=== PATIENT | male | born 1935 | race Caucasian/White ===

== ENCOUNTER 2018-02-07 07:50 | Outpatient (CLI) | payer MEDICARE, BC ==
[~2018-02-07] VITALS: Ht 165.1 cm; Wt 90.9 kg
--- NOTE | ~2018-02-07 | OP ---
PATIENT NAME: ZOHRA FITZGERALD MEDICAL RECORD: [id number] :31 LOCATION:D.CAT ADMISSION DATE: SURGEON: JANINE BRIDGES MD DATE OF OPERATION: 02/07/2018 PROCEDURE: 1. Aortofemoral runoff. 2. Abdominal aortography. INDICATION: Claudication and peripheral vascular disease. PROCEDURE IN DETAIL: After informed consent was obtained and after a detailed description of risks, benefits as well as alternative therapies, the patient elected to proceed with angiogram and aortofemoral runoff. The right femoral area had a preexisting sheath from coronary intervention. All catheters exchanged through this sheath. FINDINGS: Abdominal aortography was performed. The catheter was pulled down for aortofemoral runoff. Abdominal aortography reveals no significant abdominal aortic disease, no dissection or aneurysmal formation. RIGHT LEG: A. Iliac: The common internal and external iliacs have moderate irregularities, but no flow-limiting stenosis. B. Femoral system: The common superficial and deep femoral have moderate irregularities, but no flow-limiting stenosis. C. Popliteal and infrapopliteal vessels: Popliteal is widely patent. 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 There is 2-vessel runoff through the peroneal and posterior tibial, although these are diffusely diseased. LEFT LEG: A. Iliac: The common internal and external iliacs have moderate irregularities, but no flow-limiting stenosis. B. Femoral system: The common superficial and deep femoral have moderate irregularities, but no flow-limiting stenosis. C. Popliteal and infrapopliteal vessels: Popliteal is widely patent. 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 There is 2-vessel runoff through the peroneal and posterior tibial, although these are diffusely diseased. OVERALL IMPRESSION: Infrapopliteal disease bilaterally. Otherwise, no significant peripheral vascular disease is present. TRANSINT:[id number] Voice Confirmation ID: [id number] DOCUMENT ID: [id number] JANINE BRIDGES MD at 0956 CC: [id number] DICTATION DATE: 02/07/18 1034 CLOTH MEASURER: 02/07/18 1404 DEP CLI 02/07/18 [place] [address]
--- NOTE | ~2018-02-07 | HEMODYNAMI ---
PATIENT:ZOHRA FITZGERALD MEDICAL RECORD: [id number] : 31 LOCATION:DSharonCAT ADMISSION DATE: 02/07/18 Generatedon:02/07/201810:32 Patient name: ZOHRA FITZGERALD Patient #: [id number] : 1935 Date of study: 02/07/2018 Page: Of Hemodynamic Procedure Report Patient Data Patient Demographics Procedure consent was obtained First Name: ZOHRA Gender: Male Last Name: AMILCAR : 1935 [facility] Initial: L Age: 82 year(s) Patient #: [id number] Race: SSN: [id number] Additional ID: [id number] Contact details Address: [address] [address] State: [place] City: [place] Zip code: [address] Admission Admission Data Admission Date: 02/07/2018 Admission Time: 7:50 Arrival Date: 02/07/2018 Arrival Time: 10:00 Admit Source: Other Insurance Payor: Medicare Height (in.): 66 BSA: 2.03 (m2) Height (cm.): 167.64 BMI: 33.57 (kg/m2) Weight (lbs.): 208 Weight (kg.): 94.35 Lab Results Lab Result Date: 02/07/2018 Lab Result Time: 0:00 Biochemistry Name Units Result Min Max BUN mg/dl 12 --(-*--)-- 7 18 Creatinine mg/dl 0.7 --(*---)-- 0.6 1.3 CBC Name Units Result Min Max Hemoglobin g/dl 16 --(--*-)-- 13.5 17.5 Procedure Procedure Types Cath Procedure Diagnostic Procedure C [facility] w/Coronaries Peripheral Cath Diagnostic Procedure Cath Peripheral Urpff-Nunvfmq-Jrr-Off Procedure Description Procedure Date Procedure Date: 02/07/2018 Procedure Start Time: 10:10 Procedure End Time: 10:29 Procedure Staff Name Function Reji Greenfield MD Performing Physician Usah Reynolds RT Monitor Peggy Lawler RN Nurse Alia Stewart RT Scrub Procedure Data Cath Procedure Fluoroscopy Diagnostic fluoroscopy Total fluoroscopy Time: 5.4 time: 5.4 min min Diagnostic fluoroscopy Total fluoroscopy dose: dose: 1027 mGy 1027 mGy Contrast Material Contrast Material Type Amount (ml) Isovue 300 93 Entry Location Entry Primary Successful Side Size Upsize Upsize Entry Closure Succes sful Closure Location (Fr) 1 (Fr) 2 (Fr) Remarks Device Remarks Femoral Right 5 Fr 6 Fr Exoseal artery Short Estimated blood loss: 5 ml Diagnostic catheters Device Type Used For End Catheter Placement MULTIPACK Pigtail 5 Fr LV Angiography catheter MULTIPACK JL 4.0 5Fr Left Coronary catheter Angiography MULTIPACK 3DRC 5Fr Right Coronary catheter Angiography Procedure Complications No complications Procedure Medications Medication Administration Route Dosage Oxygen NC 2 l/min Lidocaine 2% added to field 20 Heparin Flush Bag added to field 2 bags (1000units/500ml NS) 0.9% NaCl I.V. 100 ml/hr Versed I.V. 1 mg Fentanyl I.V. 50 mcg Versed I.V. 1 mg Fentanyl I.V. 50 mcg Heparin Bolus I.V. 4000 units Versed I.V. 1 mg Integrilin (Bolus I.V. 8.5 ml 2mg/ml) Plavix P.O. 600 mg Hemodynamics Rest BSA: 2.03 (m2) HGB: 16 (g/dl) O2 Consumption: Estimated: 220.94 (ml/min) O2 Cons umption indexed: Estimated:108.84 (ml/min/m) Heart Rate: 57 (bpm) Snapshots Pre Cath Intra NCS Post Cath Vital Signs Time Heart Resp SPO2 etCO2 NIBP (mmHg) Rhythm Pain Sedation Rate (ipm) (%) (mmHg) Status Level (bpm) 9:46:12 58 16 95 0 129/75(107) NSR 0 (11) 10(A) , No pain 9:50:24 60 13 93 37.4 123/76(105) NSR 0 (11) 10(A) , No pain 9:54:37 67 15 94 35.8 127/77(110) NSR 0 (11) 10(A) , No pain 9:58:51 58 13 94 1.4 107/67(86) NSR 0 (11) 10(A) , No pain 10:03:07 61 13 92 41.1 90/53(69) NSR 0 (11) 10(A) , No pain 10:07:17 56 15 94 30.7 100/52(72) NSR 0 (11) 9(A) , No pain 10:11:30 63 13 94 20.9 106/60(81) NSR 0 (11) 9(A) , No pain 10:15:41 62 16 95 19.4 109/60(91) NSR 0 (11) 9(A) , No pain 10:19:49 60 15 96 24.6 105/63(84) NSR 0 (11) 9(A) , No pain 10:24:01 62 12 93 27.6 98/56(81) NSR 0 (11) 9(A) , No pain 10:28:11 61 15 95 40.3 95/55(70) NSR 0 (11) 10(A) , No pain Medications Time Medication Route Dose Verified Delivered Reason Notes Effectiveness by by 9:53:46 Oxygen NC 2 Reji Buffie used for l/min Gin Lawler RN procedure 9:53:52 Lidocaine 2% added 20ml Reji Reji for local to vial Gin Greenfield MD anesthetic field 9:53:58 Heparin Flush added 2 Reji Reji used for Bag to bags Gin Greenfield MD procedure (1000units/500ml field NS) 9:54:07 0.9% NaCl I.V. 100 Reji Buffie Per physician ml/hr Gin Lawler RN 10:00:18 Versed I.V. 1 mg Reji Buffie for sedation Gin Lawler RN 10:00:25 Fentanyl I.V. 50 Reji Buffie for sedation mcg Gin Lawler RN 10:05:10 Versed I.V. 1 mg Reji Buffie for sedation Gin Lawler RN 10:05:13 Fentanyl I.V. 50 Reji Buffie for sedation mcg Gin Lawler RN 10:18:37 Heparin Bolus I.V. 4000 Reji Buffie for verifi ed units Gin Lawler RN anticoagulation with dr greenfield 10:21:59 Versed I.V. 1 mg Reji Buffie for sedation Gin Lawler RN 10:22:21 Integrilin I.V. 8.5 Reji Buffie for wasted (Bolus 2mg/ml) ml Gin Lawler RN antiplatelet 1.5 ml therapy of vial 10:29:16 Plavix P.O. 600 Reji Woods for mg Gin Lawler RN antiplatelet therapy Procedure Log Time Note 8:56:04 Patient Height : 66 inches 8:56:10 Patient Weight : 208 lbs 9:09:15 Informed consent obtained and on chart 9:10:31 Admit Source: Other 9:10:35 Arrival Date: 02/07/2018 10:00:00 AM 9:10:41 Insurance Payor : Medicare 9:12:17 Lab Result : Hemoglobin 16 g/dl 9:12:17 Lab Result : Creatinine 0.7 mg/dl 9:12:17 Lab Result : BUN 12 mg/dl 9:12:30 Usha Reynolds RT(R) sent for patient. Start room use. 9:12:32 Time tracking: Regular hours (M-F 7:00 - 5:00) 9:12:36 Plan of Care:Hemodynamics will remain stable., Cardiac rhythm will remain stable., Comfort level will be maintained., Respiratory function will remain adequate., Patient/ family verbilizes understanding of procedure., Procedure tolerated without complication., Recovers from procedure without complications.. 9:44:40 Patient received from Pre/Post Procedure Room to CCL 2 Alert and oriented. Tansferred to table in Supine position. 9:44:41 Warm blankets applied, and shamar hugger turned on for patient comfort. 9:44:42 Correct patient and procedure confirmed by team. 9:44:42 ECG and BP/O2 sat monitors applied to patient. 9:44:48 Vital chart was started 9:44:49 Baseline sample Acquired. 9:44:54 Rhythm: sinus rhythm 9:44:55 Full Disclosure recording started 9:45:00 H&P Date Dictated: 02/07/2018 Within 30 days and on chart., H&P Addendum completed by physician on day of procedure. (MUST COMPLETE FOR ALL OUTPATIENTS). 9:46:44 Pre-procedure instructions explained to patient. 9:46:45 Pre-op teaching completed and patient verbalized understanding. 9:46:47 Family in waiting room. 9:46:49 Patient NPO since Midnight. 9:46:51 Is the patient allergic to Iodine/contrast media? No. 9:46:52 Was the patient premedicated? No 9:47:00 Is patient on blood thinner?No 9:47:03 Patient diabetic? No. 9:47:05 Previous problem with sedation/anesthesia? No ? 9:47:07 Snore? Yes 9:47:08 Sleep apnea? No 9:47:09 Deviated septum? No 9:47:11 Opens mouth fully? Yes 9:47:13 Sticks out tongue? Yes 9:47:15 Airway obstruction? No ? 9:47:17 Dentures? No ? 9:47:28 Pre procedure: right dorsailis pedis pulse 1+ Palpable, but thready & weak; easily obliterated 9:47:30 Pre procedure: left dorsailis pedis pulse 1+ Palpable, but thready & weak; easily obliterated 9:47:32 Patient pain scale 0/10 ?. 9:47:40 IV patent on arrival in left forearm with 0.9% NaCl at [facility]. 9:47:42 Lab results completed and on chart. 9:47:46 Bilateral groins area was prepped with chlora-prep and draped in sterile fashion 9:47:47 Alarms reviewed by R. N. 9:47:48 Sharps counted by scrub and verified by R.N. 9:53:46 Oxygen 2 l/min NC was administered by Peggy Lawler RN; used for procedure; 9:53:52 Lidocaine 2% 20ml vial added to field was administered by Reji Greenfield MD; for local anesthetic; 9:53:58 Heparin Flush Bag (1000units/500ml NS) 2 bags added to field was administered by Reji Greenfield MD; used for procedure; 9:54:07 0.9% NaCl 100 ml/hr I.V. was administered by Peggy Lawler RN; Per physician; 9:59:35 Physician arrived 9:59:36 --------ALL STOP TIME OUT------ 9:59:36 Final Timeout: patient, procedure, and site verified with staff and physician. All members of the team are in agreement. 9:59:38 Bilateral groins site verified by team. 9:59:40 Physical assessment completed. ASA score P 2 - A patient with mild systemic disease as per Reji Greenfield MD. 9:59:43 Sedation plan: IV Moderate Sedation Medication:Versed, Fentanyl 9:59:59 Procedure type changed to Cath procedure, Diagnostic procedure, LHC, LHC w/Coronaries, Peripheral Cath Diagnostic Procedure, Cath Peripheral, Cozjo-Gcuuhlc-Svr-Off 10:00:08 Use device set Femoral Dx 10:00:10 ACIST Syringe (57368) opened to sterile field. 10:00:10 Bag Decanter (2002S) opened to sterile field. 10:00:11 Medline Cath Pack ([id number]) opened to sterile field. 10:00:12 DIAGNOSTIC WIRE .035 260cm J wire (799829) opened to sterile field. 10:00:13 ACIST Hand Control (50292) opened to sterile field. 10:00:14 ACIST Manifold (32592) opened to sterile field. 10:00:15 DIAGNOSTIC Multipack 5Fr catheter set (FM9875) opened to sterile field. 10:00:16 Tegaderm 4 x 4 (1626W) opened to sterile field. 10:00:18 Versed 1 mg I.V. was administered by Peggy Lawler RN; for sedation; 10:00:25 Fentanyl 50 mcg I.V. was administered by Peggy Lawler RN; for sedation; 10:00:25 SHEATH 5Fr Prelude ([id number]) opened to sterile field. 10:05:10 Versed 1 mg I.V. was administered by Peggy Lawler RN; for sedation; 10:05:13 Fentanyl 50 mcg I.V. was administered by Peggy Lawler RN; for sedation; 10:10:02 Zero performed for pressure channel P1 10:10:13 Procedure started. 10:10:18 Local anesthetic to right femoral artery with Lidocaine 2% by Reji Greenfield MD.INITIAL ACCESS ONLY 10:10:27 A 5 Fr sheath was inserted into the Right Femoral artery 10:11:08 A MULTIPACK Pigtail 5 Fr catheter was advanced over the wire and used for LV Angiography. 10:13:36 unable to cross valve; proceeding with AFRO 10:13:42 Abdominal angiogram w/ runoff was performed. 10:13:55 Catheter removed. 10:14:07 A MULTIPACK JL 4.0 5Fr catheter was advanced over the wire and used for Left Coronary Angiography. 10:14:57 LCA angiography performed. 10:15:00 Injector settings: Ml/sec: 3, Volume: 6, 10:15:36 Catheter removed. 10:15:40 A MULTIPACK 3DRC 5Fr catheter was advanced over the wire and used for Right Coronary Angiography. 10:16:09 CHOICE PT Extra Support 182cm wire ([id number]) opened to sterile field. 10:16:10 INFLATOR Merit BasixCompak (AT4023) opened to sterile field. 10:16:11 [place] Nenana Eagleye IVUS Catheter (35378I) opened to sterile field. 10:16:11 SHEATH 6Fr Prelude ([id number]) opened to sterile field. 10:16:22 GUIDE 6FR EBU 4.5 catheter (MD0JBX01) opened to sterile field. 10:17:01 RCA angiography performed. 10:17:04 Injector settings: Ml/sec: 3, Volume: 6, 10:17:25 Catheter removed. 10:17:26 Proceeding to intervention. 10:17:32 Sheath upsized to a 6 Fr Short. 10:17:41 6 Fr ebu 4.5 guide catheter was inserted over the wire 10:17:47 choice pt wire advanced. 10:18:37 Heparin Bolus 4000 units I.V. was administered by Peggy Lawler RN; for anticoagulation; verified with dr greenfield 10:19:24 Wire advanced across lesion. 10:19:28 IVUS catheter advanced over wire. 10:21:59 Versed 1 mg I.V. was administered by Peggy Lawler RN; for sedation; 10:22:21 Integrilin (Bolus 2mg/ml) 8.5 ml I.V. was administered by Peggy Lawler RN; for antiplatelet therapy; wasted 1.5 ml of vial 10:23:02 IVUS pass to LAD lesion performed. 10:23:03 IVUS catheter removed over wire. 10:24:55 Place stent Inflation Number: 1 A NIRAV RX 3.0 x 22 stent ([id number]) was prepped and advanced across the Prox LAD. The stent was deployed at 17 ANDRES for 0:10 (min:sec). 10:26:07 Stent catheter was removed intact over wire. 10:26:08 Wire removed. 10:26:09 Guide catheter removed. 10:26:16 EXOSEAL 6Fr (EX600) opened to sterile field. 10:26:24 Sheath removed intact; hemostasis achieved with Exoseal to the Right Femoral artery. 10:26:26 Procedure ended.(Physican Out) 10:27:39 Fluoroscopy time 05.40 minutes. 10::44 Fluoroscopy dose: 1027 mGy 10::44 Flurop Dose total: 1027 10::26 Contrast amount:Isovue 300 93ml. 10:28:28 Sharps counted by scrub and verified by R.N. 10:28:31 Insertion/operative site no bleeding no hematoma. 10:28:35 Post-op/insertion site Right Femoral artery dressed using a 4 x 4 and Tegaderm. 10:28:38 Post right femoral artery:stable 10:28:41 Post Procedure Pulses reassessed and unchanged 10:28:46 Post procedure rhythm: unchanged. 10:28:48 Estimated blood loss: 5 ml 10:28:52 Post procedure instruction explained to patient.Patient verbalizes understanding. 10:28:53 Patient needs reinforcement of post procedure teaching. 10:28:58 Procedure and supply charges have been captured, reviewed, submitted and are correct. 10:29:02 Procedure Complication : No complications 10:29:04 Vital chart was stopped 10:29:05 See physician's report for complete and final results. 10:29:07 Report given to Pre/Post Procedure Room. 10:29:10 Patient transfered to Pre/Post Procedure Room with Stretcher. 10:29:12 Procedure ended. 10:29:12 Full Disclosure recording stopped 10:29:16 Plavix 600 mg P.O. was administered by Peggy Lawler RN; for antiplatelet therapy; 10:29:20 ACC-PCI Only Patient was given prescriptions, or instructed by Reji Greenfield MD to start/continue the following medications upon discharge: Plavix 10:29:21 End room use (Document Last) Intervention Summary Intervention Notes Time ActionType Lesion and Equipment Used Action# Pressure Duration Attributes 10:24:55 Place stent Prox LAD NIRAV RX 3.0 x 1 17 00:10 22 stent ([id number]) Device Usage Item Name Manufacture Quantity Catalog Number Hospital Part Current M inimal Lot# / Charge Number Stock Stock Serial# Code ACIST Syringe Acist 1 25938 647774 601897 338923 2 0 (72218) ORVIBO Inc Bag Decanter Microtek 1 2001S 774610 73807 667219 5 () Medical Inc. Medline Cath Cardinal 1 [id number] 670459 73754 790971 5 Pack Health ([id number]) DIAGNOSTIC [facility] [place] 1 915870 427526 313296 017561 3 0 WIRE .035 260cm J wire (218818) ACIST Hand Acist 1 66559 438044 033488 543498 5 Control Medical (16482) Systems Inc ACIST Manifold Acist 1 95259 034088 241222 338629 5 (50434) Medical Systems Inc DIAGNOSTIC Cardinal 1 AJ2269 275531 62309 219949 3 0 Multipack 5Fr Health catheter set (SM5919) Tegaderm 4 x 4 3M 1 1626W 981604 692724 780077 5 (1626W) SHEATH 5Fr Merit 1 [id number] 690689 383099 752375 5 Prelude Medical ([id number]) MULTIPACK Cardinal 1 323386 5 Pigtail 5 Fr Health catheter MULTIPACK JL Cardinal 1 708693 5 4.0 5Fr Health catheter MULTIPACK 3DRC Cardinal 1 011685 5 5Fr catheter Health CHOICE PT [place] 1 [id number] 533696 540015 042888 5 Extra Support Scientific 182cm wire ([id number]) INFLATOR Merit Merit 1 JJ5534 252603 913188 866483 1 5 MAZ Medical (PU0534) [place] 1 [id number] 185564 792696 026005 8 [place] Eagleye IVUS Catheter (22335X) SHEATH 6Fr Merit 1 [id number] 248538 068568 011775 5 Prelude Medical ([id number]) GUIDE 6FR EBU Medtronic 1 [id number] 787209 17278 466089 0 4.5 catheter ([id number]) NIRAV RX 3.0 x Medtronic 1 [id number] 900147 5014502 044092 5 [id number] 22 stent ([id number]) EXOSEAL 6Fr Cardinal 1 EX600 962925 433439 525378 1 0 (EX600) Health Signature Audit [place] Stage Time Signature Unsigned Intra-Procedure 02/07/2018 Usha Reynolds 10:32:04 AM RT(R) Signatures Monitor : Usha Reynolds RT Signature : Date : Time : [id number] [place] [address]
--- NOTE | ~2018-02-07 | OP ---
PATIENT NAME: ZOHRA FITZGERALD MEDICAL RECORD: [id number] :31 LOCATION:D.CAT ADMISSION DATE: SURGEON: JANINE BRIDGES MD DATE OF OPERATION: 02/07/2018 PROCEDURES: 1. PTCA stent LAD. 2. Intravascular ultrasound of the LAD. 3. Left heart catheterization. 4. Selective angiography. 5. Left ventriculogram. INDICATION: Angina and coronary artery disease. PROCEDURE IN DETAIL: After informed consent was obtained and after a detailed description of risks, benefits as well as alternative therapies, the patient elected to proceed with angiogram and angioplasty. The right femoral area was prepped and draped in normal sterile fashion. Right femoral artery was cannulated via modified negative with placement of 6-[place] sheath. All catheters exchanged through this sheath. FINDINGS: Left ventriculogram was not performed secondary to inability to cross the aortic valve. SELECTIVE CORONARY ANGIOGRAPHY: 1. Left main has no significant angiographic disease. 2. Left anterior descending has 77% stenosis proximally confirmed by intravascular ultrasound. 3. Left circumflex has moderate irregularities, but no flow-limiting stenosis. 4. Right coronary artery has moderate irregularities, but no flow-limiting stenosis. DIRECTOR OF FIELD COORDINATION STENT OF THE LAD: The stent used was a 3.0 x 22 mm [place]. Result was 0% residual stenosis. OVERALL IMPRESSION: Successful percutaneous transluminal coronary angioplasty stent of the left anterior descending going from 77% initial stenosis confirmed by intravascular ultrasound to 0% residual stenosis. TRANSINT:[id number] Voice Confirmation ID: [id number] DOCUMENT ID: [id number] JANINE BRIDGES MD at 0956 CC: [id number] DICTATION DATE: 02/07/18 1034 UTILITY WORKER FORGE: 02/07/18 1403 DEP CLI 02/07/18 [address] [place] [address]
[~2018-02-07 07:50] MED LIST: ANUSOL-HC25 MG RC; ASPIRIN 81 MG E81 MG PO; CO Q-10200 MG PO; COREG 3.1253.125 MG PO; DILAUDID2 MG PO; FLOMAX0.4 MG PO; FUROSEMIDE20 MG PO; LIPITOR20 MG PO; NITROQUICK0.4 MG SL; NORCO 10/325 TA1 TA1 PO; NORVASC10 MG PO; PERCOCET 10/3251 TA1 PO; PROBIOTIC1 EAC1 PO; ROBAXIN-750750 MG PO; SLOW-MAG 64 MG64 MG PO; STOOL SOFTENER240 MG PO; STOOL SOFTENER250 MG PO
[2018-02-07 08:29] VITALS: BP 147/96; Ht 165.1 cm; Wt 90.9 kg
[2018-02-07 08:46] LABS: BASOPHILS 0.4 % (0-2); EOSINOPHILS 2.9 % (0-7); HEMATOCRIT 46.2 % (42.0-54.0); IMMATURE GRANULOCYTES 0.1 % (0-5); LYMPHOCYTES 25.3 % (15-50); MCH 31.2 pg (26.0-34.0); MCHC 34.6 g/dL (31.0-37.0); MCV 90.1 fL (80.0-100.0); MEAN PLATELET VOLUME 10.1 fL (7.4-10.4); MONOCYTES 11.5 % (2-11); NEUTROPHILS 59.8 % (40-80); PLATELET COUNT 172 10x3/uL (130-400); RBC 5.13 10x6/uL (4.20-6.10); RDW 13.1 % (11.5-14.5)
[2018-02-07 08:52] LABS: CALC OSMOLALITY 278 mosm/kg (275-300); CALCIUM 8.6 mg/dL (8.5-10.1); CARBON DIOXIDE 26.6 mmol/L (21.0-32.0); CHLORIDE - SERUM 106 mmol/L (98-107); CREATININE - SERUM 0.7 mg/dL (0.6-1.3); GLUCOSE 104 mg/dL (74-106); SODIUM 140 mmol/L (136-145); UREA NITROGEN 12 mg/dL (7-18); eGFR NON AFRICAN AMERICAN > 90 mL/min (90-120)
[2018-02-07] MEDS ORDERED: PLAVIX75 MG PO (10:56)
== END 2018-02-07 14:37 | disposition home or self-care (01) ==
LOC: D.CATH 07:50
PROVIDERS: Internal Medicine Interventional Cardiology
DX: I25.119 Atherosclerotic heart disease of native coronary artery with unspecified angina pectoris (principal); I70.213 Atherosclerosis of native arteries of extremities with intermittent claudication, bilateral legs; Z01.812 Encounter for preprocedural laboratory examination
CPT/HCPCS: 93458; 92978; C9600

== ENCOUNTER → 2021-03-12 10:40 | Outpatient (CLI) | payer MEDICARE, BC ==
[2018-02-07 08:29] VITALS: BMI 33.3
[~2021-03-12 10:40] MED LIST changes: +PLAVIX75 MG PO
== END | disposition home or self-care (01) ==
LOC: D.HCCECHO 10:40
PROVIDERS: ATTEND Internal Medicine Cardiovascular Disease
DX: I35.0 Nonrheumatic aortic (valve) stenosis (principal)